=== PATIENT | male | born 1980 | race Caucasian/White ===

== ENCOUNTER 2019-04-20 08:56 | Emergency (ER) | payer OTHER ==
[~2019-04-20] VITALS: Ht 172.7 cm; Wt 72.6 kg
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
[2019-04-20] MEDS ORDERED: NS 1000ML 1,000 ML ONE ×2 (08:59→10:41)
[2019-04-20] MEDS ORDERED: ATIVAN IV STA (08:59)
[2019-04-20] MEDS ORDERED: ANCEF 1 GM in NS 100ML 100 ML IV STA (08:59)
[2019-04-20] MEDS ORDERED: MORPHINE SULFATE IV STA (08:59)
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
[2019-04-20] MEDS ORDERED: NS 1000ML 1,000 ML IV ONE (09:00)
[2019-04-20] MEDS ORDERED: MORPHINE SULFATE ONE (09:00)
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
[2019-04-20 09:05] VITALS: BP 161/96
[2019-04-20 09:12] VITALS: BP 161/96
[2019-04-20 09:13] VITALS: BP 161/96
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
--- NOTE | 2019-04-20 09:15 | NUR ---
LAB LAB AT BEDSIDE
--- NOTE | 2019-04-20 09:17 | NUR ---
RADIOLOGY RADIOLOGY AT BEDSIDE
[2019-04-20] MEDS ORDERED: ANCEF ONE (09:23)
[2019-04-20] MEDS ORDERED: NS 100ML 100 ML IV ONE (09:23)
[2019-04-20] MEDS ORDERED: ATIVAN ONE (09:24)
[2019-04-20 09:31] VITALS: BP 156/90
[2019-04-20 09:32] LABS: EOSINOPHIL % 0.2 % (0.0-5.0); LYMPHOCYTES # 1.33 10^3/uL1 (1.0-4.8); LYMPHOCYTES % 10.7 % (24.0-44.0); MEAN CORP HGB 30.8 pg (26-34); MONOCYTES # 0.7 10^3/uL (0.3-0.8); MONOCYTES % 5.3 % (5.0-12.0); NEUTROPHIL # 10.4 10^3/uL (1.8-7.7); NEUTROPHILS % 83.6 % (41.0-85.0); PLATELET COUNT 289 10^3/uL (150-400); RED CELL DISTRIBUTION WIDTH 12.7 % (11.5-14.5)
[2019-04-20 09:37] VITALS: BP_SYST 161
--- NOTE | 2019-04-20 09:37 | PCM.EKG ---
[facility] Test Date: 2019-04-20 Test Time: 09:30:17 Pat Name: YASMANI VERGARA Department: Room: Gender: M Applicator Sprayer: : 1980 Requested By: LAINA MCDERMOTT Order Number: [id number] Reading MD: Rachel Mcdermott Measurements Intervals [place] Rate: 87 P: 66 NH: 140 QRS: 39 QRSD: 86 T: 54 QT: 399 QTc: 480 Interpretive Statements Sinus rhythm Borderline prolonged QT interval No previous ECG available for comparison Electronically Signed On 04-24-2019 7:46:47 CDT by Rachel Mcdermott Please click the below link to view image of tracing.
[2019-04-20 09:59] LABS: ALANINE AMINOTRANSFERASE(ML) 22 U/L (12-78); ALKALINE PHOSPHATASE 106 U/L (50-136); ASPARTATE AMINO TRANSFERASE 20 U/L (0-35); CARBON DIOXIDE 27.4 mmol/L (20.0-32); GLUCOSE 135 mg/dL (70-110)
[2019-04-20] MEDS ORDERED: LIDOCAINE 1% VIAL ONE ×2 (10:16→10:42)
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
[2019-04-20 10:58] LABS: BILIRUBIN,URINE NEGATIVE (NEGATIVE); UROBILINOGEN,URINE NORMAL (NEGATIVE)
--- NOTE | 2019-04-20 10:59 | NUR ---
WOUNDS TO RIGHT LEG 15CM OPEN LACERATION TO RIGHT LOWER LEG, ANTERIOR REGION OVER HASSAN BONE. DR. SHAVER AT BEDSIDE FOR SUTURING OF LEG. CLEANSED WITH NS, COVERED WITH DRESSING.
[2019-04-20] MEDS ORDERED: TRIPLE ANTIBIOTIC OINTMENT TP ONE (11:02)
[2019-04-20 11:05] LABS: APPEARANCE,URINE CLOUDY (CLEAR); UA COLOR YELLOW (YELLOW)
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
[2019-04-20 11:18] VITALS: BP 178/111
[2019-04-23 16:27] LABS: OPIATES Positive (.)
[2019-04-24 13:33] LABS: CODEINE NEGATIVE; MORPHINE GC/MS CONF 2678 ng/mL
== END 2019-04-20 13:25 | disposition home or self-care (01) ==
LOC: ER 08:56
DX: S81.811A Laceration without foreign body, right lower leg, initial encounter (principal); Z79.899 Other long term (current) drug therapy; W20.8XXA Other cause of strike by thrown, projected or falling object, initial encounter; Y93.89 Activity, other specified; Y92.488 Other paved roadways as the place of occurrence of the external cause; Y99.8 Other external cause status
CPT/HCPCS: 12005; 36415; 70450; 71260; 72125; 73030; 73590; 74177; 80053; 80307; 80320; 80324; 80349; 81000; 82550; 82553; 84484; 85025; 85610; 85730; 86900; 93005; 96365; 96375; 99285; A4649 ×2; G0480; J0690 ×2; J2001 ×2; J2060; J2270; J7030 ×2; J7050 ×2; Q9965; 12001